=== PATIENT | female | born 1980 | race Two or more races ===

== ENCOUNTER 2023-12-12 11:37 | Emergency (ER) | payer MEDICAID, OTHER ==
[~2023-12-12] VITALS: Ht 162.6 cm; Wt 88.5 kg
[2023-12-12 11:52] VITALS: BP 136/69; TEMP 98.6; O2SAT 100
[2023-12-12] MEDS ORDERED: IBUP-1955 PO (12:45)
== END 2023-12-12 12:53 | disposition home or self-care (01) ==
LOC: ER 11:50
DX: S90.121A Contusion of right lesser toe(s) without damage to nail, initial encounter (principal); W20.8XXA Other cause of strike by thrown, projected or falling object, initial encounter; Y93.89 Activity, other specified; Y92.89 Other specified places as the place of occurrence of the external cause; Y99.8 Other external cause status
CPT/HCPCS: 73630-TC